=== PATIENT | female | born 1955 | race Caucasian/White ===

== ENCOUNTER → 2022-07-08 10:36 | Outpatient (BNVA) | payer MEDICARE, SELFPAY | PROVIDERS: Visit Provider Family Medicine | DX: Z13.1 Encounter for screening for diabetes mellitus (principal); Z13.6 Encounter for screening for cardiovascular disorders; R53.83 Other fatigue; Z83.49 Family history of other endocrine, nutritional and metabolic diseases; R10.2 Pelvic and perineal pain; R30.0 Dysuria; N39.0 Urinary tract infection, site not specified | CPT/HCPCS: 80053; 80061; 81000; 84443; 87077; 87086; 87184 ==